=== PATIENT | female | born 1995 | race Two or more races ===

== ENCOUNTER 2019-04-20 03:30 | Emergency (ER) | payer OTHER ==
[~2019-04-20] VITALS: Ht 167.6 cm; Wt 50.8 kg
[2019-04-20] VITALS (9 sets, daily range): BP systolic 88–114; BP diastolic 53–73
--- NOTE | 2019-04-20 03:30 | NUR ---
ED Nurse Note: Received report. Corona AUGUSTIN from home, AAOx4, a Addendum: 04/20/19 at 0331 by TEVELYElizabeth ED Nurse Note: Received report. Corona AUGUSTIN from home, AAOx4, c/o abdominal pain, vaginal bleeding and cramping s/p taking pill after being 7 weeks . First . Will assess and carry out ER MD's orders.
[2019-04-20] MEDS ORDERED: [UNRECOGNIZED DRUG - REMARK] (03:40)
--- NOTE | 2019-04-20 03:42 | NUR ---
ED Nurse Note: Paced IV on left AC 20 ga.
[2019-04-20] MEDS ORDERED: Ketorolac 30mg Inj IV ONE (03:45)
--- NOTE | 2019-04-20 03:48 | Emergency Room Report ---
History of Present Illness General Chief Complaint: Vaginal Source: Patient Present Illness HPI Is a 23-year-old female who is 1 para 0 proximal 7 weeks . She had ultrasound done already. She was started on pill 2 days ago. She presents with chief complaint of heavy bleeding. Onset started around 5 PM. Passing heavy blood and clots. [place]gin dizzy with standing. [place] pale. Bouts of cramp. No fever or chills. She was standing. Better with rest. Denies any trauma. Allergies: Coded Allergies: No Known Allergies (Unverified , 04/20/19) Patient History Past Medical History: see triage record, old chart reviewed Past Surgical History: none Pertinent Family History: none Social History: Denies: smoking Last Menstrual Period: 02/18/19 Now: No : 1 Para: 0 Immunizations: other Reviewed Nursing Documentation: PMH: Agreed; PSxH: Agreed Nursing Documentation-PM Past Medical History: No Stated History Review of Systems Eye: Denies: eye pain, blurred vision ENT: Denies: ear pain, nose congestion, throat swelling Respiratory: Denies: cough, shortness of breath Cardiovascular: Denies: chest pain, palpitations Gastrointestinal: Denies: abdominal pain, diarrhea, nausea, vomiting Genitourinary: Reports: vag bleed/dc Musculoskeletal: Denies: back pain, joint pain Skin: Denies: rash Neurological: Denies: headache, numbness Endocrine: Denies: increased thirst, increased urine Hematologic/Lymphatic: Denies: easy bruising All Other Systems: negative except mentioned in HPI Physical Exam Vital Signs Date Time Temp Pulse Resp B/P (MAP) Pulse Ox O2 Delivery O2 Flow Rate FiO2 04/20/19 03:28 97.5 86 16 102/77 (85) 95 Room Air vitals normal Sp02 EP Interpretation: reviewed, normal General Appearance: well appearing, no apparent distress, alert Head: normocephalic, atraumatic Eyes: bilateral eye PERRL, bilateral eye EOMI ENT: hearing grossly normal, normal pharynx Neck: full range of motion, supple, no meningismus Respiratory: chest non-tender, lungs clear, normal breath sounds Cardiovascular #1: regular rate, rhythm, no murmur Gastrointestinal: normal bowel sounds, non tender, no mass, no organomegaly, no bruit, non-distended Genitourinary: other - Pelvic exam done with female nurse as cosmetic sales assistant. External exam normal. Internal exam showed a large clots. After evacuating the clots, there is oozing of blood from the os. Cervical opening his fingertip. Uterine size normal. Musculoskeletal: back normal, gait/station normal, normal range of motion Neurologic: alert, oriented x3 Psychiatric: mood/affect normal Skin: warm/dry, other - Patient is pale Medical Decision Making Diagnostic Impression: Primary Impression: Vaginal bleeding Additional Impression: Anemia Qualified Codes: D64.9 - Anemia, unspecified ER Course Patient with vaginal bleeding status post pill induced . She is slightly anemic but not to the point of transfusion. Leading improved after evacuation of clots. We'll discharge home. Last Vital Signs Date Time Temp Pulse Resp B/P (MAP) Pulse Ox O2 Delivery O2 Flow Rate FiO2 04/20/19 03:28 97.5 86 16 102/77 (85) 95 Room Air Status: improved Disposition: HOME, SELF-CARE Condition: Stable Scripts Ferrous Sulfate (IRON) 325 Mg Tablet 325 MG PO DAILY, #30 TAB Prov: Eddie Simental MD 04/20/19 Ibuprofen* (MOTRIN*) 600 Mg Tablet 600 MG ORAL THREE TIMES A DAY, #30 TAB 0 Refills Prov: Eddie Simental MD 04/20/19 Additional Instructions: Follow-up with your INSPECTOR SALVAGE in one to 2 days. you will need repeat blood testing. Return if symptom worsen. Eddie Simental MD Apr 20, 2019 03:48
--- NOTE | 2019-04-20 03:54 | NUR ---
ED Nurse Note: Report given to Nneka RN per CN. Endorsed vaginal exam to shift supervisor melting RN for continuity of care.
[2019-04-20 03:56] LABS: BASOPHILS % (AUTO) 0.6 % (0.0-2.0); EOSINOPHILS % (AUTO) 0.2 % (0.0-3.0); HEMATOCRIT 32.1 % (37.0-47.0); HEMOGLOBIN 10.6 G/DL (12.0-16.0); LYMPHOCYTES % (AUTO) 17.9 % (20.0-45.0); MEAN CORPUSCULAR VOLUME 84 FL (80-99); NEUTROPHILS % (AUTO) 75.4 % (45.0-75.0); PLATELET COUNT 117 K/UL (150-450); WHITE BLOOD COUNT 11.7 K/UL (4.8-10.8)
--- NOTE | 2019-04-20 03:57 | NUR ---
ED Nurse Note: Received report from SHAHZAD arriaga and assumed care, pt was brought in by [facility] from home c/c vaginal bleeding, pt states she is 7 wks and took pill yesterday and started having heavy vaginal bleeding (towel x3) and low abd pain. pt AA&ox4, gcs=15, skin warm and dry, resp even and unlabored on RA, noted vaginal bleeding at this time on pad, vss, will cont monitor. all safety precautions in place, pt advised to notify staff if need assist.
[2019-04-20 04:17] LABS: ANION GAP 8 mmol/L (5-15); BLOOD UREA NITROGEN 13 mg/dL (7-18); CALCIUM 8.8 MG/DL (8.5-10.1); CARBON DIOXIDE 24 MMOL/L (21-32); CHLORIDE 102 MMOL/L (98-107); CREATININE 0.9 MG/DL (0.55-1.30); POTASSIUM 3.6 MMOL/L (3.5-5.1); SODIUM 134 MMOL/L (136-145)
[2019-04-20] MEDS ORDERED: IRON325 M1 PO (04:26)
[2019-04-20] MEDS ORDERED: IBUPROFEN600 MG ORAL (04:26)
--- NOTE | 2019-04-20 05:50 | NUR ---
ED Nurse Note: Pt cleared to be d/c per ERMD, during discharge process noted pt with heavy bleeding on pad, skin pale, pt c/o dizziness. noted bp 88/71. ERMD notified regarding pt's condition. will cont monitor. pt NSR on director of cardiac rehabilitation.
--- NOTE | 2019-04-20 06:20 | NUR ---
ED Nurse Note: REPEAT CBC SENT TO LAB.
--- NOTE | 2019-04-20 06:40 | NUR ---
ED Nurse Note: EXTRA BLANKET WITH SNACK PROVIDED.
--- NOTE | 2019-04-20 07:00 | NUR ---
ED Nurse Note: REPORT GIVEN TO RN JOHNNIE AND ENDORSED CARE, PT VSS, RESP EVEN AND UNLABORED ON RA AT THIS TIME, ON RFID SYSTEMS ENGINEER, NSR, PT STATES SHE IS STILL WEAK, ERMD NOTIFIED REGARDING PT'S CONDITION, IV INTACT AND PATENT, ULTRASOUND AT THE BEDSIDE.
[2019-04-20 07:16] LABS: HEMOGLOBIN 9.1 G/DL (12.0-16.0); MEAN CORPUSCULAR VOLUME 83 FL (80-99); PLATELET COUNT 104 K/UL (150-450); RED BLOOD COUNT 3.12 M/UL (4.20-5.40); RED CELL DISTRIBUTION WIDTH 12.3 % (11.6-14.8); WHITE BLOOD COUNT 16.1 K/UL (4.8-10.8)
--- NOTE | 2019-04-20 07:22 | NUR ---
ED Nurse Note: pt with bedside us in process. pt tolerating well.
--- NOTE | 2019-04-20 07:45 | NUR ---
ED Nurse Note: pt voiding on bedpan, specimen sent to lab. mod amt blood noted. pt states she still feels dizzy with sitting up to use bedpan. pt tearful, support given. pt states she has noone to be with her at this time. pt aware to be npo at this time.
[2019-04-20] MEDS ORDERED: Tranexamic Acid 500 MG in NS 55 ML IVPB ONE (08:00)
[2019-04-20] MEDS: LR 1000ml 1,000 ML IV SCH ×2 (08:29→12:45)
[2019-04-20 08:44] LABS: APPEARANCE,URINE CLOUDY; BILIRUBIN, URINE NEGATIVE (NEGATIVE); COLOR,URINE PALE YELLOW; GLUCOSE, URINE (UA) NEGATIVE (NEGATIVE); KETONES,URINE NEGATIVE (NEGATIVE); LEUKOCYTE ESTERASE ,URINE NEGATIVE (NEGATIVE); NITRITE,URINE NEGATIVE (NEGATIVE); PH,URINE 6 (4.5-8.0); PROTEIN,URINE 3+ (NEGATIVE); UROBILINOGEN,URINE NORMAL MG/DL (0.0-1.0)
--- NOTE | 2019-04-20 08:47 | NUR ---
ED Nurse Note: meds given as ordered. pt resting in room no increased bleeding or pain.
--- NOTE | 2019-04-20 10:30 | NUR ---
ED Nurse Note: pt voiding on bedpan. pt with mod amt blood on pad, no clots noted. pt has been able to rest. ivf infusing well. awaiting md reeval
--- NOTE | 2019-04-20 11:31 | Diagnostic Imaging Report ---
Indication: Recently took pill. Vaginal bleeding. Pelvic pain Technique: Grayscale and duplex Doppler imaging of the pelvis performed utilizing a transabdominal and endovaginal scan. Comparison: None Findings: The endometrium is abnormal with a multifocal cystic components and heterogeneous mass-like appearance. This may be a hematoma; products of conception are not excluded. Correlation with quantitative beta hCG is needed. Other possibilities such as a endometrial mass or polyps not excluded. Abnormal area measures about 4 cm. The uterus measures 10 x 6 x 7 cm. The ovaries appear normal with dopplerable blood flow. The right ovary is 2.6 x 3.1 x 2.6 cm. Left ovary measures 3.4 x 2.7 x 1.7 cm. There is no free fluid identified. IMPRESSION: Abnormal endometrium with areas of heterogeneity, fluid and cystic changes. Considerations include hematoma, products of conception or other nonpregnancy-related mass lesions. Clinical correlation is needed including Quantitative beta-hCG and evaluation by BOIL OFF MACHINE OPERATOR CLOTH.
--- NOTE | 2019-04-20 12:00 | NUR ---
ED Nurse Note: pt sleeping room awaiting further eval by . npo remains. no increased bleeding noted.
--- NOTE | 2019-04-20 13:00 | NUR ---
ED Nurse Note:repeat pelvic exam done by md. small amt blood noted. pt tolerates well. pt amb steady gait to brp, no dizziness or weakness c/o. pt given lunch tray once cleared by md to eat.
--- NOTE | 2019-04-20 13:15 | NUR ---
ER DISCHARGE NOTE: Patient is cleared to be discharged per ERMD, pt is aox4, on room air, with stable vital signs. pt was given dc and prescription instructions, pt was able to verbalize understanding, pt id band and iv site removed without complications. pt is able to ambulate with steady gait. pt took all belongings.
== END 2019-04-20 13:15 | disposition home or self-care (01) ==
LOC: EDBD 03:30 → EMR 03:51
DX: N93.9 Abnormal uterine and vaginal bleeding, unspecified (principal); D64.9 Anemia, unspecified; R42 Dizziness and giddiness
CPT/HCPCS: 36415; 76830; 76856; 80048; 81001; 84702; 85007; 85025; 86850; 86900; 86901; 96361; 96365; 96375; 99284; J1885